=== PATIENT | female | born 1975 | race Caucasian/White ===

== ENCOUNTER → 2017-08-14 | Outpatient (CLI) | payer BC ==
--- NOTE | 2017-08-18 15:26 | BMR ---
EXAMINATION TYPE: MR breast BILAT wo/w con DATE OF EXAM: 08/14/2017 COMPARISON: Outside mammogram August 03, 2017 BI-RADS 2 and older studies. HISTORY: Right Breast CA diagnosed and treated June 2016. 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 Negative punched biopsy right skin January 07, 2017. CONTRAST: Multiplanar, multisequence images of the breasts were acquired utilizing 12.5 mL intravenous Gadavist gadolinium contrast. TECHNIQUE: A series of fat and water weighted images in the long and short axis views of both breasts are obtained in conjunction with dynamic contrast MRI with subtraction technique. Three-dimensional and additional postprocessing imaging is created on independent workstation and reviewed during offi cial interpretation of this study. FINDINGS: There is asymmetric enlargement and skin thickening in the right breast with asymmetric vas cularity, findings presumed related to treatment change especially given findings of negative punch b iopsy earlier this year. There is artifact from surgical clips with residual thin-walled fluid collection outer aspect level o f nipple roughly 9:00 position measuring roughly 3.0 x 2.0 cm felt to reflect residual seroma. There is background heterogeneously dense tissue seen bilaterally. There is mild background enhanceme nt left breast with more diffuse vascular enhancement right breast. No pathologic enhancement is iden tified. There is no suspicious axillary or intramammary adenopathy in either breast on current study. A few benign-appearing left axillary lymph nodes are incidentally noted. No suspicious incidental findings in the visualized thorax or upper abdomen. IMPRESSION: No convincing MRI evidence for recurrent malignancy. Presumed posttreatment changes to ri ght breast as detailed above especially given negative skin biopsy earlier this year. BI-RADS 2 benign findings. Recommendation: Annual diagnostic bilateral breast mammogram July 2018. Consider annual MRI surve illance.
== END | disposition home or self-care (01) ==
LOC: RADMRIMAIN 08:06
PROVIDERS: ATTEND Surgery
DX: Z98.890 Other specified postprocedural states (principal); Z08 Encounter for follow-up examination after completed treatment for malignant neoplasm; Z85.3 Personal history of malignant neoplasm of breast
CPT/HCPCS: 77059; 0159T; A9581

== ENCOUNTER → 2022-08-20 | Outpatient (CLI) | payer BC ==
--- NOTE | 2022-08-21 05:34 | MR ---
EXAMINATION TYPE: MR knee RT wo con DATE OF EXAM: 08/20/2022 COMPARISON: None HISTORY: Right inner and outer knee pain and swelling for 2 months. Multiplanar multiecho imaging of the right knee performed without contrast. There is a large knee joint effusion. The anterior and posterior cruciate ligaments are intact. The p atella is intact. The collateral ligaments are intact. The medial and lateral menisci are within norm al limits. No evidence for fracture. There is some mild spurring of the femoral and tibial condyles. No focal bone destruction. IMPRESSION: Mild hypertrophic osteoarthritis. Moderate size knee joint effusion. No evidence of ligamentous or me niscal tear.
== END | disposition home or self-care (01) ==
LOC: RADMRIMAIN 10:57
PROVIDERS: ATTEND Orthopaedic Surgery
DX: M17.11 Unilateral primary osteoarthritis, right knee (principal); M25.461 Effusion, right knee

== ENCOUNTER → 2023-09-16 | Outpatient (CLI) | payer BC ==
[2023-09-17 02:34] LABS: Calcium 9.1 mg/dL (8.7-10.3); Carbon Dioxide 29.1 mmol/L (21.6-31.8); Chloride 100 mmol/L (96-109); Glucose 98 mg/dL (70-110); Potassium 3.9 mmol/L (3.5-5.5); Sodium 137 mmol/L (135-145)
[2023-09-17 03:02] LABS: Basophils # (A) 0.06 X 10*3/uL (0.00-0.10); Basophils % (A) 0.6 %; Eosinophils # (A) 0.22 X 10*3/uL (0.04-0.35); Eosinophils % (A) 2.3 %; HCT 41.1 % (37.2-46.3); HGB 13.1 g/dL (12.0-15.0); Lymphocytes % (A) 25.6 %; MCH 29.8 pg (27.0-32.0); MCHC 31.9 g/dL (32.0-37.0); MCV 93.4 FL (80.0-97.0); Monocytes # (A) 0.67 X 10*3/uL (0.20-1.00); Monocytes % (A) 7.1 %; NRBC Per 100 WBC 0 X 10*3/uL (0.00-0.01); Neutrophils # (A) 6.01 X 10*3/uL (1.80-7.70); Neutrophils % (A) 64.2 %; Platelet Count 328 X 10*3/uL (140-440); RDW 13.2 % (11.5-14.5); WBC 9.38 X 10*3/uL (4.50-10.00)
== END | disposition home or self-care (01) ==
LOC: LABPAT 16:27
PROVIDERS: ATTEND Obstetrics & Gynecology
DX: Z01.812 Encounter for preprocedural laboratory examination (principal)
CPT/HCPCS: 36415; 80048; 85025; 86850; 86900; 86901

== ENCOUNTER → 2023-10-20 | Outpatient (CLI) | payer BC ==
[2023-10-20 18:17] LABS: HCT 43.6 % (37.2-46.3); HGB 14.3 g/dL (12.0-15.0); MCH 30.9 pg (27.0-32.0); MCHC 32.8 g/dL (32.0-37.0); MCV 94.2 FL (80.0-97.0); Mean Platelet Volume 10.3 FL (9.5-12.2); NRBC Per 100 WBC 0 X 10*3/uL (0.00-0.01); Platelet Count 393 X 10*3/uL (140-440); RBC 4.63 X 10*6/uL (4.10-5.20); WBC 8.27 X 10*3/uL (4.50-10.00)
[2023-10-20 18:36] LABS: BUN/Creat Ratio 17.38 Ratio (12.00-20.00); Blood Urea Nitrogen 13.9 mg/dL (9.0-27.0); Calcium 9.8 mg/dL (8.7-10.3); Carbon Dioxide 26.6 mmol/L (21.6-31.8); Chloride 102 mmol/L (96-109); Glucose 78 mg/dL (70-110); Potassium 4.2 mmol/L (3.5-5.5); Sodium 141 mmol/L (135-145)
== END | disposition home or self-care (01) ==
LOC: LABPAT 13:50
PROVIDERS: ATTEND Obstetrics & Gynecology
DX: Z01.812 Encounter for preprocedural laboratory examination (principal)
CPT/HCPCS: 80048; 85027; 86850; 86900; 86901

== ENCOUNTER 2023-10-28 05:33 | Day surgery (SDC) | payer BC ==
[2023-10-22 12:14] VITALS: BMI 38.0
[2023-10-28] MEDS: LACTATED RINGERS 1,000 ML IV SCH (06:20)
[2023-10-28] MEDS: SCOPOLAMINE 1 MG/72 HR PATCH TRANSDERM ONE (06:30)
[2023-10-28] MEDS: ONDANSETRON 4 MG/2 ML VIAL ONE (06:30)
[2023-10-28] MEDS: DEXAMETHASONE SOD PHOSPHATE 4 MG/ML 1 ML VIAL IV ONE ×2 (06:30→19:24)
[2023-10-28] MEDS ORDERED: diphenhydrAMINE 50 MG/ML 1 ML VIAL ONE (06:36)
[2023-10-28] MEDS: MIDAZOLAM 2 MG/2 ML VIAL IVP ONE (06:44)
[2023-10-28] MEDS: diphenhydrAMINE 50 MG/ML 1 ML VIAL IVP ONE (06:50)
[2023-10-28] MEDS: FAMOTIDINE 20 MG/2 ML VIAL IVP ONE (06:50)
[2023-10-28] MEDS: fentaNYL (PF) 50 MCG/ML 2 ML AMP IVP ONE (06:50)
[2023-10-28] MEDS ORDERED: HYDROmorphone 0.5 MG/0.5 ML SYRINGE IVP PRN (07:00)
[2023-10-28] MEDS ORDERED: ROCURONIUM 10 MG/ML (5 ML VIAL) IV ONE (07:10)
[2023-10-28] MEDS ORDERED: KETOROLAC 15 MG/ML 1 ML VIAL ONE (07:10)
[2023-10-28] MEDS ORDERED: PROPOFOL 10 MG/ML 20 ML VIAL IV ONE (07:10)
[2023-10-28] MEDS ORDERED: SUCCINYLCHOLINE CHLORIDE 200 MG/10 ML VIAL IV ONE (07:10)
[2023-10-28] MEDS ORDERED: fentaNYL (PF) 50 MCG/ML 2 ML AMP ONE (07:10)
[2023-10-28] MEDS ORDERED: LIDOCAINE 1% INJ 10MG/ML (20 ML MDV) ONE (07:10)
[2023-10-28] MEDS ORDERED: GLYCOPYRROLATE 0.2 MG/ML 2 ML VIAL ONE (07:10)
[2023-10-28] MEDS ORDERED: NEOSTIGMINE 1 MG/ML 10 ML VIAL ONE (07:10)
--- NOTE | 2023-10-28 07:13 | P.HPOB ---
History of Present Illness H&P Date: 10/28/23 Chief Complaint: ER/DE + breast cancer 48 year old female presents for TLH BSO using da Kate and diagnostic cystoscopy for ER/DE+ breast cancer. Review of Systems All systems: negative Constitutional: Denies chills, Denies fever Eyes: denies blurred vision, denies pain Ears, nose, mouth and throat: Denies headache, Denies sore throat Cardiovascular: Denies chest pain, Denies shortness of breath Respiratory: Denies cough Gastrointestinal: Denies abdominal pain, Denies diarrhea, Denies nausea, Denies vomiting Genitourinary: Denies dysuria, Denies hematuria Musculoskeletal: Denies myalgias Integumentary: Denies pruritus, Denies rash Neurological: Denies numbness, Denies weakness Psychiatric: Denies anxiety, Denies depression Endocrine: Denies fatigue, Denies weight change Past Medical History Past Medical History: Cancer, GERD/Reflux, Hyperlipidemia, Skin Disorder Additional Past Medical History / Comment(s): PSORIASIS. BREAST CANCER-RT SIDE. PRIOR SX RESCHEUDLED R/T + FLU 09/19/23-SYMPTOMS HAVE RESOLVED History of Any Multi-Drug Resistant Organisms: None Reported Past Surgical History: Bariatric Surgery, Breast Surgery Additional Past Surgical History / Comment(s): SLEEVE GASTRECTOMY. RT LUMPTECTOMY AND LYMPH NODE REMOVED. COLONOSCOPY Past Anesthesia/Blood Transfusion Reactions: Postoperative Nausea & Vomiting (PONV) Smoking Status: Light tobacco smoker - Past Family History Sister(s) Family Medical History: Cancer Father Family Medical History: Cancer Medications and Allergies Home Medications Medication Instructions Recorded Confirmed Type Atorvastatin [Lipitor] 40 mg PO DAILY 09/17/23 10/22/23 History Guselkumab [Tremfya] 100 mg SQ DIRECTED 09/17/23 10/22/23 History Letrozole 2.5 mg PO DAILY 09/17/23 10/22/23 History Linaclotide [Linzess] 145 mcg PO DAILY 09/17/23 10/22/23 History Omeprazole 40 mg PO DAILY 09/17/23 10/22/23 History Semaglutide [Ozempic] 2 mg SQ MCGEE 09/17/23 10/22/23 History Allergies Allergy/AdvReac Type Severity Reaction Status Date / Time latex AdvReac RED SKIN Verified 10/22/23 11:39 Exam Osteopathic Statement: *. No significant issues noted on an osteopathic structural exam other than those noted in the History and Physical/Consult. Vital Signs Temp Pulse Resp BP Pulse Ox 10/28/23 06:16 97.0 F L 95 16 118/82 100 Intake and Output 10/27/23 10/28/23 10/28/23 22:59 06:59 14:59 Other: Weight 120.6 kg Heart: Regular rate and rhythm Lungs: Clear to auscultation bilaterally Abdomen: Soft, nontender Extremities: Negative Homans sign Assessment and Plan (1) ER+ DE+ carcinoma of breast Current Visit: Yes Status: Acute Code(s): C50.919 - MALIGNANT NEOPLASM OF UNSP SITE OF UNSPECIFIED FEMALE BREAST; Z17.0 - ESTROGEN RECEPTOR POSITIVE STATUS [ER+] SNOMED Code(s): 178456886 Plan: Total laparoscopic hysterectomy and bilateral salpingo-oophorectomy using da Kate and diagnostic cystoscopy, possible YUNG/BSO
[2023-10-28] MEDS: SODIUM CHLORIDE 0.9% 50 ML with ceFAZolin 1,000 MG IV ONE (07:15)
[2023-10-28] MEDS: BUPIVACAINE (PF) 0.25% 30 ML VIAL SQ ONE ×2 (07:57)
[2023-10-28] MEDS ORDERED: NALOXONE 0.4 MG/ML 1 ML VIAL IV PRN (08:01)
[2023-10-28] MEDS ORDERED: NALBUPHINE 10 MG/ML (10 ML MDV) IV PRN (08:01)
[2023-10-28] MEDS ORDERED: ONDANSETRON 4 MG/2 ML VIAL IVP PRN (08:01)
--- NOTE | 2023-10-28 08:04 | P.ANPRN ---
Procedure Note - Anesthesia - Epidural/Spinal Spinal Time Out Performed: Yes Date of Procedure: 10/28/23 Procedure Start Time: 06:45 Procedure Stop Time: 06:50 Location of Patient: PreOp Indication: Acute Post-Operative Pain, Requested by Surgeon Sedation Type: Sedate with meaningful contact maintained Preparation: Sterile Dressing Position: Sitting Catheter: None Needle Guage: 25 Injectate: At L4-L5 interspinous space, with 1 attempt with good CSF flow. No paresth Narrative: No paresthesia Blood Aspirated: No Pain Paresthesia on Injection Noted: No Events: Uneventful and Well Tolerated (25 mics programs of fentanyl mixed with 300 g of preservative free morphine injected into the subarachnoid space.)
[2023-10-28] MEDS ORDERED: SIMETHICONE 80 MG CHEWABLE PO PRN (08:40)
[2023-10-28] MEDS ORDERED: METOCLOPRAMIDE 5 MG/ML 2 ML VIAL IVP PRN (08:40)
--- NOTE | 2023-10-28 08:40 | P.OP ---
Date of Procedure: 10/28/23 Preoperative Diagnosis: 1. ER/IN + breast cancer Postoperative Diagnosis: same Procedure(s) Performed: TLHBSO using da Kate and diagnostic cystoscopy Anesthesia: CLAIRE Surgeon: Ana Fox Candy Dipper #1: Rebecca Penn Estimated Blood Loss (ml): 5 IV fluids (ml): 600 Urine output (ml): 50 Pathology: other (uterus, cervix, bilateral tubes and ovaries) Condition: stable Disposition: PACU Operative Findings: normal uterus, tubes and ovaries Description of Procedure: Patient taken the operating room where general anesthesia was obtained without difficulty. She is prepped and draped in normal sterile fashion dorsal lithotomy position, legs placed in the Kirby stirrups. Weighted speculum placed in the vagina and the anterior lip the cervix was grasped with single-tooth te naculum. The uterus sounded to 10 cm and the cervix diameter was 3.5 cm. The appropriate manipulator tip and ring were placed on the Francisca manipulator. The Francisca manipulator was then placed in the uterus. Cali catheter was also placed. Attention was then turned to the abdomen and gloves were changed. A 5 mm supraumbilical incision was made the scalpel and a 5 mm optical trocar was placed under direct visualization. 10 cm to the right of this and 2 cm down a 5 mm incision was made and 8 mm da Kate port was placed under direct visualization. Same measurements on the opposite side of the patient's abdomen, the 5 mm incision was made and 8 mm da Kate port was placed under direct visualization. In the left upper quadrant a 10 mm incision was made and a 10 mm optical trocar was placed under direct visualization. The 5 mm optical trocar was then replaced with the 8 mm da Kate camera port. The robot was docked on patient's right side. The camera was introduced and then the monopolar curved scissor and vesssel sealer placed under direct visualization. It was noted that the uterus had been perforated and manipulator balloon was outside of uterus. I broke scrub and went to the physician console. The left infundibulopelvic ligament was sealed and cut using the vessel sealer. The left round ligament was sealed and cut using the vessel sealer. The posterior leaf of the broad ligament was taken down using the monopolar curved scissors. Anterior leaf of the broad ligament was then taken down using the monopolar curved scissors. The uterine artery was sealed and cut with the vessel sealer. The bladder flap was then started using the monopolar curved scissors. Attention was then turned to the right side of the patient's anatomy and the right infundibular pelvic liga ment was sealed and cut with the vessel sealer. The right round ligament was sealed and cut with the vessel sealer. Posterior leaf of the broad ligament was taken down using the monopolar curved scissors and the anterior leaf was taken down using the monopolar curved scissors. The uterine artery was sealed and cut with the vessel sealer. The bladder flap was then finished on this side. Anterior colpotomy was made using the monopolar curved scissors. The rest of the uterus was from the vaginal cuff by following the ring around with the monopolar curved scissors through the uterosacral ligaments back to the anterior portion. Once the uterus and cervix were amputated they were pulled through the vaginal cuff. Hemostasis was assured. The instruments were changed for the Cardier forcep and the paulette suture cut. The vaginal cuff was then closed using 2-O stratafix barbed suture in a running fashion. Hemostasis was again assured and the pelvis was irrigated. All instruments were removed from the abdomen and the robot was undocked. I scrubbed back in to perform a cystoscopy. There were jets from both ureteral orifices. The abdominal incisions were closed with 4-0 Monocryl in a subcuticular fashion. Patient tolerated the procedure well, sponge and instrument counts correct 2 and she was taken to recovery room in stable condition condition
[2023-10-28] MEDS ORDERED: GUSELKUMAB 100 MG/ML SQ SCH (12:00)
[2023-10-28] MEDS: diphenhydrAMINE 50 MG/ML 1 ML VIAL IVP PRN (16:01)
[2023-10-28] MEDS: KETOROLAC 15 MG/ML 1 ML VIAL IVP PRN (19:51)
[2023-10-28] MEDS: SENNOSIDES-DOCUSATE SODIUM 1 EACH TAB PO SCH (19:53)
[2023-10-29 06:53] LABS: Basophils % (A) 0 %; Eosinophils # (A) 0.1 k/uL (0-0.7); Eosinophils % (A) 1 %; HCT 31.6 % (34.0-46.0); HGB 10.7 gm/dL (11.4-16.0); Lymphocytes # (A) 2.4 k/uL (1.0-4.8); Lymphocytes % (A) 24 %; MCH 31.3 pg (25.0-35.0); MCHC 33.8 g/dL (31.0-37.0); MCV 92.5 fL (80.0-100.0); Mean Platelet Volume 7.3; Monocytes # (A) 0.5 k/uL (0-1.0); Monocytes % (A) 6 %; Neutrophils # (A) 6.6 k/uL (1.3-7.7); Neutrophils % (A) 68 %; Platelet Count 255 k/uL (150-450); RBC 3.41 m/uL (3.80-5.40); RDW 12.9 % (11.5-15.5); WBC 9.8 k/uL (3.8-10.6)
[2023-10-29] MEDS: LETROZOLE 2.5 MG TAB PO SCH (08:01)
[2023-10-29] MEDS: PANTOPRAZOLE 40 MG TABLET PO SCH (08:01)
[2023-10-29] MEDS: ATORVASTATIN 40 MG TAB PO SCH (08:01)
[2023-10-29] MEDS: NON FORMULARY DRUG (Linaclotide [Linzess] 145 MCG Capsule) PO SCH (08:07)
--- NOTE | 2023-10-29 08:36 | P.DS ---
Providers Expected date of discharge: 10/29/23 Attending physician: Ana Fox Primary care physician: Tish Duganher - Discharge Diagnosis(es) (1) ER+ TN+ carcinoma of breast Current Visit: Yes Status: Chronic (2) History of robot-assisted laparoscopic hysterectomy Current Visit: Yes Status: Acute Hospital Course: Pt presented for TLH BSO using da leta. She underwent this procedure without complication. Postoperative day #1 she is doing pretty well. Denies nausea, vomiting, chest pain, shortness of breath or calf pain. Her pain is well- controlled with Motrin and Tylenol. She's having difficulty urinating but she did have a spinal anesthetic yesterday's that could be related. She's had been straight cathed 2 times. If the patient cannot urinate she will stay another night otherwise she will be discharged home post operative day #1 in stable condition to follow-up with me in 2 weeks. Plan - Discharge Summary Discharge Rx Participant: Yes New Discharge Prescriptions: No Action Guselkumab [Tremfya] 100 mg SQ DIRECTED Omeprazole 40 mg PO DAILY Atorvastatin [Lipitor] 40 mg PO DAILY Semaglutide [Ozempic] 2 mg SQ MCGEE Linaclotide [Linzess] 145 mcg PO DAILY Letrozole 2.5 mg PO DAILY Discharge Medication List Atorvastatin [Lipitor] 40 mg PO DAILY 09/17/23 [History] Guselkumab [Tremfya] 100 mg SQ DIRECTED 09/17/23 [History] Letrozole 2.5 mg PO DAILY 09/17/23 [History] Linaclotide [Linzess] 145 mcg PO DAILY 09/17/23 [History] Omeprazole 40 mg PO DAILY 09/17/23 [History] Semaglutide [Ozempic] 2 mg SQ MCGEE 09/17/23 [History] Follow up Appointment(s)/Referral(s): Ana Fox DO [Doctor of Osteopathic Medicine] - 2 Weeks Discharge Disposition: HOME SELF-CARE
--- NOTE | 2023-10-29 09:11 | P.PN ---
Progress Note - Text PO day #1 , Adequate pain control. No complication.
[2023-10-29] MEDS: Acetaminophen-Codeine 300-30mg TAB PO PRN (20:24)
[2023-10-30 01:18] VITALS: PULSE 72
--- NOTE | 2023-10-30 06:58 | P.PN ---
Progress Note - Text Progress Note Date: 10/30/23 Postoperative day #2. Patient is resting without complaints however was unable to void yesterday so had her catheter reinserted. Patient is now had the catheter out since proximately 1 hour ago and we'll be attempting to void here later this morning. Patient is tolerating regular diet and ambulating without difficulty. If voiding without difficulty today she'll be discharged home follow up with Dr. Fox as scheduled.
[2023-10-30] MEDS: Acetaminophen-Codeine 300-30mg TAB PO PRN (08:21)
[2023-10-30 10:14] VITALS: BP 106/71; RESP 18; TEMP 98.3
[2023-10-31] MEDS ORDERED: NON FORMULARY DRUG (Semaglutide [Ozempic] 2 MG/0.75 ML Pen.Injctr) SQ SCH (09:00)
== END 2023-10-30 11:30 | disposition home or self-care (01) ==
LOC: OR 05:33 → 4FBP 08:43 → OR 10-30 11:30
PROVIDERS: ATTEND Obstetrics & Gynecology
DX: N83.292 Other ovarian cyst, left side (principal); N83.291 Other ovarian cyst, right side; N83.8 Other noninflammatory disorders of ovary, fallopian tube and broad ligament; C50.911 Malignant neoplasm of unspecified site of right female breast; Z17.0 Estrogen receptor positive status [ER+]; R39.198 Other difficulties with micturition; E78.5 Hyperlipidemia, unspecified; K21.9 Gastro-esophageal reflux disease without esophagitis; Z91.040 Latex allergy status; G89.18 Other acute postprocedural pain; Z79.899 Other long term (current) drug therapy; Z79.85 Long-term (current) use of injectable non-insulin antidiabetic drugs; Z87.891 Personal history of nicotine dependence; Z80.9 Family history of malignant neoplasm, unspecified
CPT/HCPCS: 58571; 62322; S2900; 81025; 85025; 88307; 88342

== ENCOUNTER 2024-06-16 11:38 | Day surgery (SDC) | payer BC ==
[2024-06-14 16:11] VITALS: BMI 42.7
[~2024-06-16 11:38] MED LIST: LACTATED RINGERS 1,000 ML IV SCH
[2024-06-16 12:56] VITALS: TEMP 97.5
--- NOTE | 2024-06-16 13:31 | P.PCN ---
Date of Procedure: 06/16/24 Procedure(s) Performed: Preoperative diagnosis: Pseudotumor cerebri Post operative diagnoses: Pseudotumor cerebri Procedure= lumbar puncture Anesthesia= local infiltration with lidocaine 1% 5 mL. Condition: stable Complication: none. Description of the procedure procedure risk and benefits discussed with the patient , consent signed. Patient and the procedure area placed in lateral position ( right side down ), back prepped with chlorhexidine 3 times been local infiltration of the skin and subcutaneous tissue with lidocaine 1% 5 mL for skin and subcu interstitial frustrations at L4 5 levels then 22-gauge Quincke-type needle advanced slowly at L4- 5 interlaminar space there was positive cerebrospinal fluid which was clear, no heme, no paresthesia ,total of 8 ML of clear cerebrospinal fluid collected in 4 different tubes 2-2-1/2 mL in each, then the needle removed and a Band-Aid applied and patient tolerated the procedure well without any complications. Opening pressure= 26 cm of water. Closing pressure the removal of 8 mL of clear cerebrospinal fluid was 19 cm of water
[2024-06-16 13:35] VITALS: RESP 18
[2024-06-16 14:05] VITALS: BP 123/72; PULSE 64
[2024-06-16 14:46] LABS: Glucose,CSF 54 mg/dL (40-70); Total Protein,CSF 44 mg/dL (12-60)
== END 2024-06-16 14:06 | disposition home or self-care (01) ==
LOC: ORPAIN 11:38
PROVIDERS: ATTEND Specialist
DX: G93.2 Benign intracranial hypertension (principal)
CPT/HCPCS: 62270; 82945; 84157; 88108

== ENCOUNTER → 2024-06-16 | Outpatient (CLI) | payer BC ==
--- NOTE | 2024-06-16 12:30 | MR ---
PRE AND POSTCONTRAST ENHANCED MRI OF THE BRAIN: CLINICAL HISTORY: H47.333 G44.221 CHRONIC TENSION-TYPE HEADACHE, INT CONTRAST: 13ml gadobutrol Multiplanar and multispin-echo imaging of the brain was performed both before and after the administr ation of contrast. The ventricles, basal cisterns and sulci overlying the cerebral convexities are within normal limits. There is no evidence for midline shift or mass effect. Acute intracranial hemorrhage or extra-axial collection is not evident. There is an elongate focus as well as a globular focus of increased signal within the right frontal l obe measuring 1.2 cm and 8 mm respectively. Consider foci of demyelination. No evidence of pathologic enhancement seen. Following contrast administration, there is no evidence for pathologic enhancement or enhancing mass. The paranasal sinuses and mastoid air cells are well-aerated. IMPRESSION: There is an elongate focus as well as a globular focus of increased signal within the right frontal l obe measuring 1.2 cm and 8 mm respectively. Consider foci of demyelination. No evidence of pathologic enhancement seen. [facility], , 06/16/2024 12:28 PM
== END | disposition home or self-care (01) ==
LOC: RADMRIMAIN 11:32
PROVIDERS: ATTEND Ophthalmology
CPT/HCPCS: 70553

== ENCOUNTER 2024-06-17 18:54 | Emergency (ER) | payer BC ==
[2024-06-17] MEDS: SODIUM CHLORIDE 0.9% 1,000 ML IV STA (19:26)
[2024-06-17] MEDS: KETOROLAC 15 MG/ML 1 ML VIAL IVP STA ×2 (19:53→21:25)
[2024-06-17 20:12] LABS: Basophils % (A) 0 %; Eosinophils # (A) 0.1 k/uL (0-0.7); Eosinophils % (A) 2 %; HCT 36.3 % (34.0-46.0); HGB 12.1 gm/dL (11.4-16.0); Lymphocytes # (A) 1.3 k/uL (1.0-4.8); Lymphocytes % (A) 13 %; MCH 29.2 pg (25.0-35.0); MCHC 33.3 g/dL (31.0-37.0); MCV 87.7 fL (80.0-100.0); Mean Platelet Volume 7.1; Monocytes # (A) 0.5 k/uL (0-1.0); Monocytes % (A) 6 %; Neutrophils # (A) 7.5 k/uL (1.3-7.7); Neutrophils % (A) 79 %; Platelet Count 302 k/uL (150-450); RBC 4.14 m/uL (3.80-5.40); RDW 13.9 % (11.5-15.5); WBC 9.5 k/uL (3.8-10.6)
[2024-06-17 20:23] LABS: ALT 24 U/L (4-34); AST 24 U/L (14-36); African American GFR (CKD) >90 (>60 ml/min/1.73 sqM); Alkaline Phosphatase 134 U/L (38-126); Anion Gap 4 mmol/L; Blood Urea Nitrogen 14 mg/dL (7-17); Calcium 9.1 mg/dL (8.4-10.2); Carbon Dioxide 25 mmol/L (22-30); Chloride 108 mmol/L (98-107); Glucose 120 mg/dL (74-99); Non-African American GFR(CKD) 87 (>60 ml/min/1.73 sqM); Potassium 4.5 mmol/L (3.5-5.1); Sodium 137 mmol/L (137-145); Total Bilirubin 0.7 mg/dL (0.2-1.3); Total Protein 6.7 g/dL (6.3-8.2)
--- NOTE | 2024-06-17 20:36 | ED ---
Headache HPI - General Source: patient, RN notes reviewed Mode of arrival: ambulatory Limitations: no limitations - History of Present Illness MD Complaint: headache Onset/Timin -: days(s) Location: occipital Severity scale (1-10): 7 Consistency: constant Worsens With: light Context: recent spinal/epidural procedure Associated Symptoms: nausea, vomiting, photophobia Treatments Prior to Arrival: Acetaminophen <Malcom Rosas - Last Filed: 06/17/24 22:45> <Danielle Bowers - Last Filed: 06/18/24 20:22> - General Chief Complaint: Headache Stated Complaint: post op issues/headache Time Seen by Provider: 06/17/24 19:11 - History of Present Illness Initial Comments: This is a 48-year-old female presenting with headache (7 out of 10) and nausea vomiting since her lumbar puncture yesterday. Patient endorses receiving CSF fluid drainage for pseudotumor cerebri yesterday. Patient endorses associated light sensitivity, stating pain is mostly in the back of her head. Patient was told that if headache was severe and that she could go to the ER and received a blood patch to address her symptoms. Patient denies other visual changes, dizzi ness, lightheadedness, fever, chills, sound sensitivity, recent history of migraines. Patient endorses use of Tylenol and Motrin with minimal relief. (Malcom Rosas) - Related Data Home Medications Medication Instructions Recorded Confirmed Atorvastatin [Lipitor] 40 mg PO HS 09/17/23 06/18/24 Letrozole 2.5 mg PO DAILY 09/17/23 06/18/24 Linaclotide [Linzess] 145 mcg PO DAILY 09/17/23 06/18/24 Omeprazole 40 mg PO DAILY 09/17/23 06/18/24 Bimekizumab-Bkzx [Bimzelx] 320 mg SQ Q28D 06/14/24 06/18/24 Allergies Allergy/AdvReac Type Severity Reaction Status Date / Time latex Allergy RED SKIN, Verified 06/18/24 08:35 rash Review of Systems ROS Other: All systems not noted in ROS Statement are negative. <Malcom Rosas - Last Filed: 06/17/24 22:45> ROS Other: All systems not noted in ROS Statement are negative. <Danielle Bowers - Last Filed: 06/18/24 20:22> ROS Statement: Those systems with pertinent positive or pertinent negative responses have been documented in the HPI. 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 BREAST CANCER-RT SIDE dx Jul 2016-rec radiation and chemo History of Any Multi-Drug Resistant Organisms: None Reported Past Surgical History: Bariatric Surgery, Breast Surgery, Hysterectomy Additional Past Surgical History / Comment(s): SLEEVE GASTRECTOMY. RT LUMPTECTOMY AND LYMPH NODE REMOVED. COLONOSCOPY Past Anesthesia/Blood Transfusion Reactions: Postoperative Nausea & Vomiting (PONV) Additional Past Anesthesia/Blood Transfusion Reaction / Comment(s): no hx blood transfusion Past Psychological History: No Psychological Hx Reported Smoking Status: Current every day smoker - Past Family History Sister(s) Family Medical History: Cancer Father Family Medical History: Cancer Additional Family Medical History / Comment(s): skin CA <Malcom Rosas - Last Filed: 06/17/24 22:45> General Exam Limitations: no limitations General appearance: alert, in no apparent distress Head exam: Present: atraumatic, normocephalic, normal inspection Eye exam: Present: normal appearance, PERRL, EOMI. Absent: scleral icterus, conjunctival injection, periorbital swelling ENT exam: Present: normal exam, mucous membranes moist Neck exam: Present: normal inspection. Absent: tenderness, meningismus, lymphadenopathy Respiratory exam: Present: normal lung sounds bilaterally. Absent: respiratory distress, wheezes, rales, rhonchi, stridor Cardiovascular Exam: Present: regular rate, normal rhythm, normal heart sounds. Absent: systolic murmur, diastolic murmur, rubs, gallop, clicks GI/Abdominal exam: Present: soft, normal bowel sounds. Absent: distended, tenderness, guarding, rebound, rigid Extremities exam: Present: normal inspection, full ROM, normal capillary refill. Absent: tenderness, pedal edema, joint swelling, calf tenderness Back exam: Present: normal inspection Neurological exam: Present: alert, oriented X3, CN II-XII intact Psychiatric exam: Present: normal affect, normal mood Skin exam: Present: warm, dry, intact, normal color. Absent: rash <Alison,Malcom - Last Filed: 06/17/24 22:45> Course Vital Signs 06/17/24 06/18/24 06/18/24 18:57 02:00 06:05 Temperature 98.6 F Pulse Rate 80 69 74 Pulse Rate [ Left Supine Pulse Oximetery ] Respiratory 20 18 18 Rate Blood Pressure 142/85 125/70 116/62 Blood Pressure [Left Arm Supine] O2 Sat by Pulse 99 97 98 Oximetry 06/18/24 06/18/24 06/18/24 08:33 08:44 09:13 Temperature 97.8 F 97.0 F L Pulse Rate 75 Pulse Rate [ 80 82 Left Supine Pulse Oximetery ] Respiratory 16 16 16 Rate Blood Pressure 122/78 Blood Pressure 141/71 145/71 [Left Arm Supine] O2 Sat by Pulse 99 100 100 Oximetry 06/18/24 06/18/24 06/18/24 09:18 09:33 09:51 Temperature Pulse Rate 67 Pulse Rate [ 71 73 Left Supine Pulse Oximetery ] Respiratory 16 16 18 Rate Blood Pressure 119/74 Blood Pressure 111/65 119/69 [Left Arm Supine] O2 Sat by Pulse 100 100 98 Oximetry Medical Decision Making - Lab Data Result diagrams: 06/17/24 19:20 06/17/24 19:20 <AlisonMalcmo - Last Filed: 06/17/24 22:45> - Lab Data Result diagrams: 06/17/24 19:20 06/17/24 19:20 <Lalito Bowersen - Last Filed: 06/18/24 20:22> - Medical Decision Making Was pt. sent in by a medical professional or institution (, PA, ORACLE APPLICATIONS DEVELOPER, urgent care, hospital, or retirement...) When possible be specific @ -No Did you speak to anyone other than the patient for history (EMS, parent, family, police, friend...)? What history was obtained from this source @ -No Did you review nursing and triage notes (agree or disagree)? Why? @ -I reviewed and agree with nursing and triage notes Were old charts reviewed (outside hosp., previous admission, EMS record, old EKG, old radiological studies, urgent care reports/EKG's, retirement records)? Report findings @ -No old charts were reviewed Differential Diagnosis (chest pain, altered mental status, abdominal pain women, abdominal pain men, vaginal bleeding, weakness, fever, dyspnea, syncope, headache, dizziness, GI bleed, back pain, seizure, CVA, palpatations, mental health, musculoskeletal)? @ -Differential Headache: Migraine, tension, cluster, carbon monoxide, central venous thrombosis, pension karma temporal arteritis, acute closure glaucoma, intercranial hemorrhage, mastoiditis, sinusitis, head injury, this is not meant to be an all-inclusive list. EKG interpreted by me (3pts min.). @ -Not done X-rays interpreted by me (1pt min.). @ -None done CT interpreted by me (1pt min.). @ -None done U/S interpreted by me (1pt. min.). @ -None done What testing was considered but not performed or refused? (CT, X-rays, U/S, labs)? Why? @ -None What meds were considered but not given or refused? Why? @ -None Did you discuss the management of the patient with other professionals (professionals i.e. , PA, ORACLE APPLICATIONS DEVELOPER, lab, RT, psych nurse, social services analyst, oracle adf consultant, teacher, chief communications officer, case planner)? Give summary @ -Anesthesia DIRECTOR DISTRIBUTION notified of need for blood patch and confirmed that they can come down to provide the patch. Was smoking cessation discussed for >3mins.? @ -No Was critical care preformed (if so, how long)? @ -No Were there social determinants of health that impacted care today? How? (Homelessness, low income, unemployed, alcoholism, drug addiction, transportation, low edu. Level, literacy, decrease access to med. care, usp, rehab)? @ -No Was there de-escalation of care discussed even if they declined (Discuss DNR or withdrawal of care, Hospice)? DNR status @ -No What co-morbidities impacted this encounter? (DM, HTN, Smoking, COPD, CAD, Cancer, CVA, ARF, Chemo, Hep., AIDS, mental health diagnosis, sleep apnea, morbid obesity)? @ -None Was patient admitted / discharged? Hospital course, mention meds given and route, prescriptions, significant lab abnormalities, going to OR and other pertinent info. @ -Patient initially given IV fluids and Toradol IV with pain persisting. IV saline with caffeine and additional Toradol IV given. Patient states pain is tolerable when supine but remains significant with movement. Anesthesia DIRECTOR DISTRIBUTION notified of need for blood patch and they advised to hold patient until morning when blood patch can be done. Undiagnosed new problem with uncertain prognosis? @ -No Drug Therapy requiring intensive monitoring for toxicity (Heparin, Nitro, Insulin, Cardizem)? @ -No Were any procedures done? @ -No Diagnosis/symptom? @ -Intracranial hypotension Acute, or Chronic, or Acute on Chronic? @ -Acute Uncomplicated (without systemic symptoms) or Complicated (systemic symptoms)? @ -Complicated Side effects of treatment? @ -No Exacerbation, Progression, or Severe Exacerbation? @ -Exacerbation Poses a threat to life or bodily function? How? (Chest pain, [place], NH, pneumonia, PE, COPD, DKA, ARF, appy, cholecystitis, CVA, Diverticulitis, Homicidal, Suicidal, threat to staff... and all critical care pts) @ -No (Malcom Rosas) Patient signed out to me by off going ZAYRA. Patient has LP performed yesterday and now endorsing post LP headache. Recieved toradol and caffiene without relief. Anesthesiology was consulted for blood patch. Anesthesiologist to come in in the morning to perform blood patch. Patient will be monitored in the ED until Anesthesiologist arrives. On my assessment patient is comfortable appearing, states her BARNES is improving, requests antacid since she missed her dose of omeprazole last night. Ordered pepcid, protonix. Patient signed out to oncoming physician, Dr. Youngblood pending anesthesiology arrival. (Danielle Bowers) - Lab Data Lab Results 06/17/24 06/17/24 Range/Units 19:20 19:20 WBC 9.5 (3.8-10.6) k/uL RBC 4.14 (3.80-5.40) m/uL Hgb 12.1 (11.4-16.0) gm/dL Hct 36.3 (34.0-46.0) % MCV 87.7 (80.0-100.0) fL MCH 29.2 (25.0-35.0) pg MCHC 33.3 (31.0-37.0) g/dL RDW 13.9 (11.5-15.5) % Plt Count 302 (150-450) k/uL MPV 7.1 Neutrophils % 79 % Lymphocytes % 13 % Monocytes % 6 % Eosinophils % 2 % Basophils % 0 % Neutrophils # 7.5 (1.3-7.7) k/uL Lymphocytes # 1.3 (1.0-4.8) k/uL Monocytes # 0.5 (0-1.0) k/uL Eosinophils # 0.1 (0-0.7) k/uL Basophils # 0.0 (0-0.2) k/uL Sodium 137 (137-145) mmol/L Potassium 4.5 (3.5-5.1) mmol/L Chloride 108 H (98-107) mmol/L Carbon Dioxide 25 (22-30) mmol/L Anion Gap 4 mmol/L BUN 14 (7-17) mg/dL Creatinine 0.81 (0.52-1.04) mg/dL Est GFR (CKD-EPI)AfAm >90 (>60 ml/min/1.73 sqM) Est GFR (CKD-EPI)NonAf 87 (>60 ml/min/1.73 sqM) Glucose 120 H (74-99) mg/dL Calcium 9.1 (8.4-10.2) mg/dL Total Bilirubin 0.7 (0.2-1.3) mg/dL AST 24 (14-36) U/L ALT 24 (4-34) U/L Alkaline Phosphatase 134 H (38-126) U/L Total Protein 6.7 (6.3-8.2) g/dL Albumin 4.0 (3.5-5.0) g/dL Disposition Is patient prescribed a controlled substance at d/c from ED?: No <Malcom Rosas - Last Filed: 06/17/24 22:45> <Danielle Bowers - Last Filed: 06/18/24 20:22> Clinical Impression: Intracranial hypotension following other procedure Disposition: HOME SELF-CARE Condition: Good Instructions (If sedation given, give patient instructions): Migraine Headache (ED) Additional Instructions: No heavy lifting/take it easy for about a week. Rest for the rest of the day. Monitor for any signs of infection, fever, or change of mental status. Return with any new or worsening symptoms. Per supervisor grain and yeast plants. Referrals: Tish Vallecillo MD [Primary Care Provider] - 1-2 days
[2024-06-17] MEDS: CAFFEINE-SODIUM BENZOATE 1,000 MG in SODIUM CHLORIDE 0.9% 1,000 ML IVPB ONE (21:36)
[2024-06-17] MEDS ORDERED: ONDANSETRON 4 MG/2 ML VIAL IVP PRN (22:59)
[2024-06-17] MEDS ORDERED: KETOROLAC 15 MG/ML 1 ML VIAL IVP PRN (22:59)
[2024-06-18] MEDS: CAFFEINE-SODIUM BENZOATE 1,000 MG in SODIUM CHLORIDE 0.9% 1,000 ML IVPB ONE (00:05)
[2024-06-18] MEDS: PANTOPRAZOLE 40 MG/10 ML VIAL IVP STA (05:32)
[2024-06-18] MEDS: FAMOTIDINE 20 MG/2 ML VIAL IV STA (05:33)
[2024-06-18 08:45] VITALS: TEMP 97
[2024-06-18] MEDS: LACTATED RINGERS 1,000 ML IV ONE (09:30)
[2024-06-18] MEDS: ONDANSETRON 4 MG/2 ML VIAL IVP ONE (09:30)
[2024-06-18 09:57] VITALS: BP 119/74; PULSE 67; RESP 18
== END 2024-06-18 10:34 | disposition home or self-care (01) ==
LOC: EC 18:54
DX: G97.8 Other intraoperative and postprocedural complications and disorders of nervous system (principal); F17.200 Nicotine dependence, unspecified, uncomplicated; Z91.040 Latex allergy status
CPT/HCPCS: 99284 ×2; 96365 ×2; 96366 ×8; 96375 ×5; 96376 ×2; 96361 ×3; 36415; 62273; 80053; 85025; J2405; J3490; J1885; J2470